=== PATIENT | male | born 1955 | race Caucasian/White ===

== ENCOUNTER 2017-07-13 18:07 | Inpatient (IN) | payer MEDICARE ==
[~2017-07-13] VITALS: Ht 165.1 cm; Wt 50.1 kg
[~2017-07-13 18:07] MED LIST: ALBU.083IS INH; ALBU90OI INH; AZIT250 PO; BUDE6HFA INH; LEVFLO500 PO; LORA.5; Nasal & Sinus D30 MG PO; Norco 5-325 Ta1 EACH PO; PRED10 PO; PRED20 PO; Zovirax800 MG PO
[2017-07-13] MEDS ORDERED: TIOT18 INH (18:19)
[2017-07-13] MEDS ORDERED: FINA5 PO (18:20)
[2017-07-13] MEDS ORDERED: TRAZ50 PO (18:20)
[2017-07-13] MEDS ORDERED: BUPR75 PO (18:21)
[2017-07-13] MEDS ORDERED: BENZ100A PO (18:22)
[2017-07-13] MEDS ORDERED: ATOR20 PO (18:22)
[2017-07-13] MEDS ORDERED: GABA300 PO (18:22)
[2017-07-13] MEDS ORDERED: TAMS.4ER PO (18:22)
[2017-07-13 18:31] LABS: BASOPHILS ABSOLUTE AUTO 0.02 K/mm3 (0.00-0.23); BASOPHILS PERCENT AUTO 0 % (0-2); EOSINOPHILS PERCENT AUTO 0 % (0-6); Hematocrit 39.8 % (37.0-53.0); Hemoglobin 13.1 g/dL (13.5-17.5); IMMATURE GRAN ABSOLUTE AUTO 0.13 K/mm3 (0.00-0.10); IMMATURE GRAN PERCENT AUTO 1 % (0-1); LYMPHOCYTES ABSOLUTE AUTO 0.35 K/mm3 (0.84-5.20); LYMPHOCYTES PERCENT AUTO 3 % (21-46); MONOCYTES ABSOLUTE AUTO 0.25 K/mm3 (0.16-1.47); MONOCYTES PERCENT AUTO 2 % (4-13); Mean Corpuscular HGB 29.6 pg (26.0-34.0); Mean Corpuscular HGB Conc 32.9 g/dL (31.5-36.5); Mean Corpuscular Volume 90 fL (80-100); Mean Platelet Volume 10.6 fL (9.1-12.4); NEUTROPHILS ABSOLUTE AUTO 10.02 K/mm3 (1.96-9.15); NEUTROPHILS PERCENT AUTO 93 % (41-73); Platelet Count 334 K/mm3 (150-400); RDW Coefficient Variation 12.8 % (11.7-14.2); RDW Standard Deviation 42.7 fL (35.1-46.3); Red Blood Cell Count 4.42 M/mm3 (4.30-5.90); White Blood Cell Count 10.77 K/mm3 (4.00-11.30)
[2017-07-13 18:38] LABS: PCO2 Arterial 49.5 mmHg (35-45); PO2 Arterial 46.8 mmHg (80-100)
[2017-07-13 18:48] LABS: Alanine Aminotransfer (ALT/SGP 27 U/L (12-78); Albumin, Blood 3.6 g/dL (3.4-5.0); Albumin/Globulin Ratio 0.9 (0.8-1.8); Alk Phos 70 U/L (50-136); Anion Gap 8 mmol/L (6-16); Aspartate Aminotrans (AST/SGOT 13 U/L (12-37); Bilirubin, Total 0.2 mg/dL (0.1-1.0); Blood Urea Nitrogen 17 mg/dL (8-24); Bun/Creatinine Ratio 21.3 (12.0-20.0); CO2, Blood 29 mmol/L (21-32); Calcium, Blood 9.6 mg/dL (8.5-10.1); Chloride, Blood 102 mmol/L (98-108); Glomerular Filtration Rate >60 (60-); Glucose, Blood 154 mg/dL (70-99); Sodium, Blood 139 mmol/L (136-145); Total Protein, Blood 7.6 g/dL (6.4-8.2)
[2017-07-14 05:30] LABS: BASOPHILS ABSOLUTE AUTO 0.01 K/mm3 (0.00-0.23); BASOPHILS PERCENT AUTO 0 % (0-2); EOSINOPHILS PERCENT AUTO 0 % (0-6); Hematocrit 36.8 % (37.0-53.0); IMMATURE GRAN ABSOLUTE AUTO 0.09 K/mm3 (0.00-0.10); IMMATURE GRAN PERCENT AUTO 1 % (0-1); LYMPHOCYTES ABSOLUTE AUTO 0.45 K/mm3 (0.84-5.20); LYMPHOCYTES PERCENT AUTO 4 % (21-46); MONOCYTES ABSOLUTE AUTO 0.15 K/mm3 (0.16-1.47); MONOCYTES PERCENT AUTO 2 % (4-13); Mean Corpuscular HGB 29.6 pg (26.0-34.0); Mean Corpuscular HGB Conc 32.6 g/dL (31.5-36.5); Mean Corpuscular Volume 91 fL (80-100); Mean Platelet Volume 10.9 fL (9.1-12.4); NEUTROPHILS ABSOLUTE AUTO 9.56 K/mm3 (1.96-9.15); NEUTROPHILS PERCENT AUTO 93 % (41-73); Platelet Count 309 K/mm3 (150-400); RDW Coefficient Variation 12.9 % (11.7-14.2); RDW Standard Deviation 42.6 fL (35.1-46.3); Red Blood Cell Count 4.05 M/mm3 (4.30-5.90); White Blood Cell Count 10.26 K/mm3 (4.00-11.30)
[2017-07-14 05:56] LABS: Alanine Aminotransfer (ALT/SGP 23 U/L (12-78); Albumin, Blood 3.3 g/dL (3.4-5.0); Albumin/Globulin Ratio 0.9 (0.8-1.8); Alk Phos 61 U/L (50-136); Anion Gap 6 mmol/L (6-16); Aspartate Aminotrans (AST/SGOT 14 U/L (12-37); Bilirubin, Total 0.2 mg/dL (0.1-1.0); Blood Urea Nitrogen 18 mg/dL (8-24); Bun/Creatinine Ratio 24.5 (12.0-20.0); CO2, Blood 30 mmol/L (21-32); Chloride, Blood 102 mmol/L (98-108); Creatinine, Blood 0.73 mg/dL (0.60-1.20); Globulin, Blood 3.5 g/dL (2.2-4.0); Glomerular Filtration Rate >60 (60-); Glucose, Blood 192 mg/dL (70-99); Sodium, Blood 138 mmol/L (136-145); Total Protein, Blood 6.8 g/dL (6.4-8.2)
[2017-07-15 05:43] LABS: BASOPHILS ABSOLUTE AUTO 0.02 K/mm3 (0.00-0.23); BASOPHILS PERCENT AUTO 0 % (0-2); EOSINOPHILS PERCENT AUTO 0 % (0-6); Hematocrit 35.8 % (37.0-53.0); Hemoglobin 11.7 g/dL (13.5-17.5); IMMATURE GRAN ABSOLUTE AUTO 0.16 K/mm3 (0.00-0.10); IMMATURE GRAN PERCENT AUTO 1 % (0-1); LYMPHOCYTES ABSOLUTE AUTO 0.58 K/mm3 (0.84-5.20); LYMPHOCYTES PERCENT AUTO 4 % (21-46); MONOCYTES ABSOLUTE AUTO 0.63 K/mm3 (0.16-1.47); MONOCYTES PERCENT AUTO 4 % (4-13); Mean Corpuscular HGB 29.8 pg (26.0-34.0); Mean Corpuscular HGB Conc 32.7 g/dL (31.5-36.5); Mean Corpuscular Volume 91 fL (80-100); Mean Platelet Volume 11.8 fL (9.1-12.4); NEUTROPHILS ABSOLUTE AUTO 13.83 K/mm3 (1.96-9.15); NEUTROPHILS PERCENT AUTO 91 % (41-73); Platelet Count 314 K/mm3 (150-400); RDW Coefficient Variation 13.1 % (11.7-14.2); RDW Standard Deviation 43.7 fL (35.1-46.3); Red Blood Cell Count 3.93 M/mm3 (4.30-5.90); White Blood Cell Count 15.22 K/mm3 (4.00-11.30)
[2017-07-15] MEDS ORDERED: GUAI600T33 PO (11:18)
[2017-07-15] MEDS ORDERED: AZIT500 PO (11:18)
== END 2017-07-15 13:16 | disposition home or self-care (01) | DRG 189 ==
LOC: ER 18:07 → MEDS 19:29 → ENPENDDIS 07-15 10:00 → MEDS 07-15 13:16
PROVIDERS: Emergency Medicine; Family Medicine; Internal Medicine
DX: J96.01 Acute respiratory failure with hypoxia (principal); J44.1 Chronic obstructive pulmonary disease with (acute) exacerbation; N40.0 Benign prostatic hyperplasia without lower urinary tract symptoms; F32.9 Major depressive disorder, single episode, unspecified; E78.5 Hyperlipidemia, unspecified
CPT/HCPCS: 36415; 36600; 71045; 71046; 80053; 82803; 85025; 94640; 94644; 94760; 96374; 97161; 97530; 99285; G8978; G8979; J0456; J1650; J2930; J7050

== ENCOUNTER 2018-03-03 01:18 | Observation (INO) | payer MEDICARE ==
[~2018-03-03] VITALS: Ht 165.1 cm; Wt 46.4 kg
[~2018-03-03 01:18] MED LIST changes: +ATOR20 PO; +AZIT500 PO; +BENZ100A PO; +BUPR75 PO; +FINA5 PO; +GABA300 PO; +GUAI600T33 PO; +TAMS.4ER PO; +TIOT18 INH; +TRAZ50 PO
[2018-03-03 01:44] LABS: BASOPHILS ABSOLUTE AUTO 0.14 K/mm3 (0.00-0.23); BASOPHILS PERCENT AUTO 1 % (0-2); EOSINOPHILS ABSOLUTE AUTO 0.38 K/mm3 (0.00-0.68); EOSINOPHILS PERCENT AUTO 4 % (0-6); Hematocrit 43.3 % (37.0-53.0); Hemoglobin 13.6 g/dL (13.5-17.5); IMMATURE GRAN ABSOLUTE AUTO 0.03 K/mm3 (0.00-0.10); IMMATURE GRAN PERCENT AUTO 0 % (0-1); LYMPHOCYTES ABSOLUTE AUTO 1.39 K/mm3 (0.84-5.20); LYMPHOCYTES PERCENT AUTO 13 % (21-46); MONOCYTES ABSOLUTE AUTO 0.89 K/mm3 (0.16-1.47); MONOCYTES PERCENT AUTO 8 % (4-13); Mean Corpuscular HGB Conc 31.4 g/dL (31.5-36.5); Mean Corpuscular Volume 96 fL (80-100); Mean Platelet Volume 10.9 fL (9.1-12.4); NEUTROPHILS ABSOLUTE AUTO 8.04 K/mm3 (1.96-9.15); NEUTROPHILS PERCENT AUTO 74 % (41-73); Platelet Count 249 K/mm3 (150-400); RDW Coefficient Variation 12.8 % (11.7-14.2); RDW Standard Deviation 45.7 fL (35.1-46.3); Red Blood Cell Count 4.53 M/mm3 (4.30-5.90); White Blood Cell Count 10.87 K/mm3 (4.00-11.30)
[2018-03-03 01:48] LABS: PCO2 Arterial 69.2 mmHg (35-45); PO2 Arterial 43.1 mmHg (80-100); pH Blood Arterial 7.28 (7.35-7.45)
[2018-03-03] MEDS ORDERED: ALBU90OI6 INH (01:51)
[2018-03-03] MEDS ORDERED: CODEINE-GUAIFE120 ML (01:53)
[2018-03-03 02:05] LABS: Alanine Aminotransfer (ALT/SGP 22 U/L (12-78); Albumin, Blood 3.9 g/dL (3.4-5.0); Albumin/Globulin Ratio 1.1 (0.8-1.8); Alk Phos 75 U/L (50-136); Anion Gap 7 mmol/L (6-16); Aspartate Aminotrans (AST/SGOT 19 U/L (12-37); Bilirubin, Total 0.2 mg/dL (0.1-1.0); Blood Urea Nitrogen 18 mg/dL (8-24); Bun/Creatinine Ratio 21.7 (12.0-20.0); CO2, Blood 32 mmol/L (21-32); Calcium, Blood 8.5 mg/dL (8.5-10.1); Chloride, Blood 104 mmol/L (98-108); Creatinine, Blood 0.83 mg/dL (0.60-1.20); Globulin, Blood 3.6 g/dL (2.2-4.0); Glomerular Filtration Rate >60 (60-); Glucose, Blood 114 mg/dL (70-99); Potassium, Blood 4.4 mmol/L (3.5-5.5); Sodium, Blood 143 mmol/L (136-145); Total Protein, Blood 7.5 g/dL (6.4-8.2); Troponin I <0.015 ng/mL (0.000-0.040)
[2018-03-03] MEDS ORDERED: MELA3 PO (04:17)
[2018-03-03 05:12] LABS: Influenza A Negative (NEGATIVE); Influenza B Negative (NEGATIVE)
[2018-03-04 05:22] LABS: BASOPHILS ABSOLUTE AUTO 0.02 K/mm3 (0.00-0.23); BASOPHILS PERCENT AUTO 0 % (0-2); EOSINOPHILS PERCENT AUTO 0 % (0-6); Hematocrit 39.6 % (37.0-53.0); Hemoglobin 12.8 g/dL (13.5-17.5); IMMATURE GRAN ABSOLUTE AUTO 0.12 K/mm3 (0.00-0.10); IMMATURE GRAN PERCENT AUTO 1 % (0-1); LYMPHOCYTES ABSOLUTE AUTO 0.56 K/mm3 (0.84-5.20); LYMPHOCYTES PERCENT AUTO 3 % (21-46); MONOCYTES ABSOLUTE AUTO 0.37 K/mm3 (0.16-1.47); MONOCYTES PERCENT AUTO 2 % (4-13); Mean Corpuscular HGB 29.8 pg (26.0-34.0); Mean Corpuscular HGB Conc 32.3 g/dL (31.5-36.5); Mean Platelet Volume 11.5 fL (9.1-12.4); NEUTROPHILS ABSOLUTE AUTO 16.41 K/mm3 (1.96-9.15); NEUTROPHILS PERCENT AUTO 94 % (41-73); Platelet Count 235 K/mm3 (150-400); RDW Coefficient Variation 13.1 % (11.7-14.2); RDW Standard Deviation 44.3 fL (35.1-46.3); White Blood Cell Count 17.48 K/mm3 (4.00-11.30)
[2018-03-04 05:23] LABS: Mean Corpuscular Volume 92 fL (80-100)
[2018-03-04] MEDS ORDERED: Acetaminophen325 M1 PO (16:00)
[2018-03-04] MEDS ORDERED: Zithromax250 MG PO (16:02)
[2018-03-04] MEDS ORDERED: PRED10 PO (16:06)
[2018-03-04] MEDS ORDERED: MIRALAX17 GM PO (16:07)
== END 2018-03-04 17:15 | disposition home or self-care (01) ==
LOC: ER 01:18 → ICUW 01:19 → MEDS 01:19 → ICUW 03:44 → MEDS 03:44 → ER 03:44 → ICUW 03:49 → MEDS 16:00 → ENPENDDIS 03-04 14:33 → MEDS 03-04 17:15
PROVIDERS: Emergency Medicine; Family Medicine; ADMIT Hospitalist
DX: J96.21 Acute and chronic respiratory failure with hypoxia (principal); J96.22 Acute and chronic respiratory failure with hypercapnia; J44.1 Chronic obstructive pulmonary disease with (acute) exacerbation; J45.909 Unspecified asthma, uncomplicated; E78.5 Hyperlipidemia, unspecified; F32.9 Major depressive disorder, single episode, unspecified; N40.0 Benign prostatic hyperplasia without lower urinary tract symptoms; Z87.891 Personal history of nicotine dependence; Z79.899 Other long term (current) drug therapy; Z88.8 Allergy status to other drugs, medicaments and biological substances; Z88.1 Allergy status to other antibiotic agents; Z79.01 Long term (current) use of anticoagulants
CPT/HCPCS: 36415; 36600; 71045; 80053; 82803; 84484; 85025; 87804; 93005; 93010; 94640; 94644; 94760; 96374; 99285-25; G0378; J1650; J2930

== ENCOUNTER 2018-07-12 15:01 | Inpatient (IN) | payer MEDICARE ==
[~2018-07-12] VITALS: Ht 165.1 cm; Wt 48.6 kg
[~2018-07-12 15:01] MED LIST changes: +ALBU90OI6 INH; +Acetaminophen325 M1 PO; +CODEINE-GUAIFE120 ML PO; +MELA3 PO; +MIRALAX17 GM PO; +SPIRIVA RESPIMAT4 G1 PO; -TIOT18 INH; +Zithromax250 MG PO
[2018-07-12 15:16] LABS: Base Excess Venous 7.9 mmol/L; Bicarbonate Venous 29.7 mmol/L (24.0-30.0); PCO2 Venous 63.8 mmHg (38-42); PO2 Venous 134 mmHg (38-42); pH Blood Venous 7.33 (7.34-7.37)
[2018-07-12 15:20] LABS: BASOPHILS ABSOLUTE AUTO 0.11 K/mm3 (0.00-0.23); BASOPHILS PERCENT AUTO 1 % (0-2); EOSINOPHILS ABSOLUTE AUTO 0.67 K/mm3 (0.00-0.68); EOSINOPHILS PERCENT AUTO 6 % (0-6); Hematocrit 40.5 % (37.0-53.0); Hemoglobin 13.1 g/dL (13.5-17.5); IMMATURE GRAN ABSOLUTE AUTO 0.07 K/mm3 (0.00-0.10); IMMATURE GRAN PERCENT AUTO 1 % (0-1); LYMPHOCYTES ABSOLUTE AUTO 2.11 K/mm3 (0.84-5.20); LYMPHOCYTES PERCENT AUTO 18 % (21-46); MONOCYTES ABSOLUTE AUTO 1.37 K/mm3 (0.16-1.47); MONOCYTES PERCENT AUTO 12 % (4-13); Mean Corpuscular HGB 30.4 pg (26.0-34.0); Mean Corpuscular HGB Conc 32.3 g/dL (31.5-36.5); Mean Corpuscular Volume 94 fL (80-100); Mean Platelet Volume 11.4 fL (9.1-12.4); NEUTROPHILS ABSOLUTE AUTO 7.31 K/mm3 (1.96-9.15); NEUTROPHILS PERCENT AUTO 63 % (41-73); Platelet Count 228 K/mm3 (150-400); RDW Coefficient Variation 12.6 % (11.7-14.2); RDW Standard Deviation 43.5 fL (35.1-46.3); Red Blood Cell Count 4.31 M/mm3 (4.30-5.90); White Blood Cell Count 11.64 K/mm3 (4.00-11.30)
[2018-07-12 15:44] LABS: Alanine Aminotransfer (ALT/SGP 25 U/L (12-78); Albumin, Blood 3.7 g/dL (3.4-5.0); Albumin/Globulin Ratio 1.1 (0.8-1.8); Alk Phos 76 U/L (50-136); Anion Gap 2 mmol/L (6-16); Aspartate Aminotrans (AST/SGOT 13 U/L (12-37); Bilirubin, Total 0.3 mg/dL (0.1-1.0); Blood Urea Nitrogen 14 mg/dL (8-24); Bun/Creatinine Ratio 15.8 (12.0-20.0); CO2, Blood 35 mmol/L (21-32); Calcium, Blood 8.9 mg/dL (8.5-10.1); Chloride, Blood 102 mmol/L (98-108); Creatinine, Blood 0.89 mg/dL (0.60-1.20); Globulin, Blood 3.4 g/dL (2.2-4.0); Glomerular Filtration Rate >60 (60-); Glucose, Blood 144 mg/dL (70-99); Potassium, Blood 4.3 mmol/L (3.5-5.5); Sodium, Blood 139 mmol/L (136-145); Total Protein, Blood 7.1 g/dL (6.4-8.2); Troponin I <0.015 ng/mL (0.000-0.040)
[2018-07-12] MEDS ORDERED: THERA1 EACH PO (16:27)
--- NOTE | 2018-07-12 19:30 | NUR ---
ASSUMED CARE PT ARRIVED TO [facility] @ APPROXIMATELY 1850 THIS EVENING. PT IS AOX4 AND AMBULATORY WITH STANDBY ASSIST AROUND ROOM. PT IS RESTING IN BED AT THIS TIME WITH RESPIRATIONS EVEN AND UNLABORED, BUT TACHYPNEIC. PT CURRENTLY DENIES DYSPNEA, O2 SATS >90% ON 2L VIA NASAL CANNULA, WHICH IS HOME O2 USAGE. LUNG SOUNDS ARE CLEAR IN THE UPPER LOBES AND DIMINISHED IN THE BASES. PT ORIENTED TO ROOM AND CALL LIGHT SYSTEM, ENCOURAGED TO CALL FOR ASSISTANCE. WILL CONTINUE WITH ADMISSION AND MONITORING. BED IN LOW POSITION, CALL LIGHT IN REACH.
[2018-07-12] MEDS ORDERED: DIPH50 PO (20:59)
[2018-07-12] MEDS ORDERED: PRED10 PO (21:02)
--- NOTE | 2018-07-12 21:20 | NUR ---
PROVIDER CONTACTED PT REPORTS THAT HE USES BENADRYL AT HOME FOR EPISODES OF ANXIETY AND DYSPNEA. PT REQUESTING BENADRYL AND HOME SLEEP MEDICATION. DR DIGGS CONTACTED AND ORDERS RECEIVED FOR BENADRYL AND MELATONIN. WILL INPUT AND ADMINISTER PER ORDERS.
--- NOTE | 2018-07-13 06:26 | NUR ---
SHIFT SUMMARY PT HAS REMAINED AOX4 THROUGHOUT SHIFT. VSS. PLEASANT AND COOPERATIVE WITH CARE. O2 SATS HAVE REMAINED >90% ON 2L VIA NASAL CANNULA. PT CONTINUES TO AMBULATE INDEPENDENTLY IN THE ROOM. PT WITH ONE REPORT OF FEELING "CONGESTED" THIS AM, BUT HAS NOT REPORTED FEELING DYSPNEIC. HAS RESTED WELL THROUHGOUT THE NIGHT. NO OTHER CHANGES FROM INITIAL ASSESSMENT. WILL CONTINUE TO MONITOR AND REPORT TO ONCOMING SHIFT RN. BED IN LOW POSITION, CALL LIGHT IN REACH.
--- NOTE | 2018-07-13 07:47 | NUR ---
The pt states that he is feeling very well this morning. States several times that he hopes to go home today, as he is feeling better now than on other occasions when he was discharged from the hospital. Wearing oxgyen at 2 l/min, which is what he uses at home. Did not need any bipap all night long.
[2018-07-13] MEDS ORDERED: PRED10 PO (16:37)
[2018-07-13] MEDS ORDERED: ACET325 PO (16:38)
[2018-07-13] MEDS ORDERED: ONDA4ODT SL (16:40)
[2018-07-13] MEDS ORDERED: Florastor250 MG PO (16:41)
[2018-07-13] MEDS ORDERED: AZIT500 PO (16:43)
--- NOTE | 2018-07-13 17:02 | NUR ---
Pt discharge instructions were reviewed with him. He is eager to go home. Ambulatory to the bathroom independently without difficulty. Able to carry on conversations, eat, and states that he is doing very well. Reviewed new medications as well as follow up appointment with Dr. Cole tomorrow. The pt will call his PCP Eleni tomorrow to make a follow up appointment as instructed, within a week.
--- NOTE | 2018-07-13 17:54 | NUR ---
The pt was taken out in a wheelchair to a private vehicle driven by his daughter. He was assisted by RN to the car.
== END 2018-07-13 17:48 | disposition home or self-care (01) | DRG 189 ==
LOC: ER 15:01 → PCU 16:49
PROVIDERS: Emergency Medicine; ADMIT Internal Medicine
PROC: 5A09357 Assistance with Respiratory Ventilation, Less than 24 Consecutive Hours, Continuous Positive Airway Pressure (ICD-10-PCS; principal; 2018-07-12)
DX: J96.21 Acute and chronic respiratory failure with hypoxia (principal); J44.1 Chronic obstructive pulmonary disease with (acute) exacerbation; J96.22 Acute and chronic respiratory failure with hypercapnia; Z99.81 Dependence on supplemental oxygen; E78.5 Hyperlipidemia, unspecified; N40.0 Benign prostatic hyperplasia without lower urinary tract symptoms; F32.9 Major depressive disorder, single episode, unspecified; Z87.891 Personal history of nicotine dependence; R00.0 Tachycardia, unspecified
CPT/HCPCS: 71045; 80053; 82803; 82947; 83880; 84484; 85025; 93005; 93010; 94640; 94660; 94760; 96365; 96366; 96375; 99285-25; J0456; J1650; J2405; J2930; J3475; J7030; J7050; Q0163

== ENCOUNTER 2018-09-27 07:46 | Day surgery (SDC) | payer MEDICARE ==
[~2018-09-27 07:46] MED LIST changes: +ACET325 PO; +DIPH50 PO; +Florastor250 MG PO; +ONDA4ODT SL; +THERA1 EACH PO
--- NOTE | 2018-09-27 08:14 | NUR ---
INTO [facility] WHEELCHA[facility]. HISTORY AND ALLERGIES REVIEWED. PT O2 DEPENDENT-SATS 92% ON 2 LITERS NASAL CANULA. NPO STATUS CONFIRMED. HR 80-90'S.WILL ADMINISTER METOPROLOL PER MD ORDERS.SEE EMAR.
--- NOTE | 2018-09-27 08:35 | NUR ---
METOPROLOL 5 MG IVP X1 GIVEN HR 80-90'S SR.
--- NOTE | 2018-09-27 09:29 | NUR ---
Patient up to Ambulate independently. Gait steady. Discharge instructions reviewed with patient. Patient verbalizes understanding. Copy given to patient to take home.
== END 2018-09-27 22:53 | disposition home or self-care (01) ==
LOC: CT 07:46 → ORD 07:46 → CT 09:00 → ORD 22:53
DX: I25.10 Atherosclerotic heart disease of native coronary artery without angina pectoris (principal); I42.9 Cardiomyopathy, unspecified; J44.9 Chronic obstructive pulmonary disease, unspecified; E78.5 Hyperlipidemia, unspecified; Z87.891 Personal history of nicotine dependence; Z88.8 Allergy status to other drugs, medicaments and biological substances
CPT/HCPCS: 75574; Q9967

== ENCOUNTER 2019-10-24 15:28 | Emergency (ER) | payer MEDICARE ==
[~2019-10-24] VITALS: Ht 165.1 cm; Wt 49.9 kg
[2019-10-24 16:05] LABS: Source, Urine Clean Catch
[2019-10-24 16:08] LABS: BASOPHILS ABSOLUTE AUTO 0.09 K/mm3 (0.00-0.23); BASOPHILS PERCENT AUTO 1 % (0-2); EOSINOPHILS PERCENT AUTO 6 % (0-6); Hematocrit 39.9 % (37.0-53.0); Hemoglobin 12.4 g/dL (13.5-17.5); IMMATURE GRAN ABSOLUTE AUTO 0.04 K/mm3 (0.00-0.10); IMMATURE GRAN PERCENT AUTO 0 % (0-1); LYMPHOCYTES ABSOLUTE AUTO 0.99 K/mm3 (0.84-5.20); LYMPHOCYTES PERCENT AUTO 9 % (21-46); MONOCYTES ABSOLUTE AUTO 1.16 K/mm3 (0.16-1.47); MONOCYTES PERCENT AUTO 10 % (4-13); Mean Corpuscular HGB 28.8 pg (26.0-34.0); Mean Corpuscular HGB Conc 31.1 g/dL (31.5-36.5); Mean Corpuscular Volume 93 fL (80-100); NEUTROPHILS ABSOLUTE AUTO 8.42 K/mm3 (1.96-9.15); NEUTROPHILS PERCENT AUTO 74 % (41-73); Platelet Count 242 K/mm3 (150-400); RDW Coefficient Variation 12.7 % (11.7-14.2); RDW Standard Deviation 43.5 fL (35.1-46.3)
[2019-10-24 16:09] LABS: Appearance, Urine Clear (Clear); Blood, Urine 3+ (Neg); Color, Urine Red (P-Yellow); Glucose Qualitative, Urine Neg (Neg); Ketones, Urine Neg (Neg); Leukocyte Esterase, Urine Neg (Neg); Nitrite, Urine Pos (Neg); Protein, Urine 3+ (Neg); Urobilinogen, Urine 3+ (Normal)
[2019-10-24 16:18] LABS: Bilirubin, Urine 3+ (Neg)
[2019-10-24 16:23] LABS: Squamous Epithelial Cells Rare /hpf (Few)
[2019-10-24 16:24] LABS: Bacteria Few /hpf
[2019-10-24 16:34] LABS: Alanine Aminotransfer (ALT/SGP 22 U/L (12-78); Albumin, Blood 3.2 g/dL (3.4-5.0); Albumin/Globulin Ratio 0.8 (0.8-1.8); Alk Phos 69 U/L (50-136); Anion Gap 3 mmol/L (6-16); Aspartate Aminotrans (AST/SGOT 32 U/L (12-37); Bilirubin, Total 0.5 mg/dL (0.1-1.0); Blood Urea Nitrogen 11 mg/dL (8-24); CO2, Blood 34 mmol/L (21-32); Calcium, Blood 9.7 mg/dL (8.5-10.1); Chloride, Blood 101 mmol/L (98-108); Glomerular Filtration Rate >60 (60-); Glucose, Blood 121 mg/dL (70-99); Potassium, Blood 4.3 mmol/L (3.5-5.5); Sodium, Blood 138 mmol/L (136-145); Total Protein, Blood 7.2 g/dL (6.4-8.2)
[2019-10-24] MEDS ORDERED: Percocet 5-3251 EACH PO (17:43)
[2019-10-24] MEDS ORDERED: Cipro500 MG PO (17:43)
== END 2019-10-24 18:04 | disposition home or self-care (01) ==
LOC: ER 15:28
PROVIDERS: Physician Assistant
DX: N13.6 Pyonephrosis (principal); J44.9 Chronic obstructive pulmonary disease, unspecified; N40.0 Benign prostatic hyperplasia without lower urinary tract symptoms; E78.5 Hyperlipidemia, unspecified; F32.9 Major depressive disorder, single episode, unspecified; Z87.891 Personal history of nicotine dependence; Z88.8 Allergy status to other drugs, medicaments and biological substances; Z79.52 Long term (current) use of systemic steroids; Z79.899 Other long term (current) drug therapy; Z99.81 Dependence on supplemental oxygen
CPT/HCPCS: 36415; 51798; 74176; 80053; 81001; 83690; 85025; 87086; 96361; 96365; 96375; 99284-25; J0696; J1885; J2405; J7030

== ENCOUNTER 2020-08-02 14:21 | Emergency (ER) | payer MEDICARE ==
[~2020-08-02] VITALS: Ht 165.1 cm; Wt 52.2 kg
[~2020-08-02 14:21] MED LIST changes: +Cipro500 MG PO; +Percocet 5-3251 EACH PO
[2020-08-02 14:55] LABS: BASOPHILS PERCENT AUTO 1 % (0-2); EOSINOPHILS ABSOLUTE AUTO 0.51 K/mm3 (0.00-0.68); EOSINOPHILS PERCENT AUTO 4 % (0-6); Hematocrit 41.6 % (37.0-53.0); Hemoglobin 13.3 g/dL (13.5-17.5); IMMATURE GRAN ABSOLUTE AUTO 0.16 K/mm3 (0.00-0.10); IMMATURE GRAN PERCENT AUTO 1 % (0-1); LYMPHOCYTES ABSOLUTE AUTO 1.14 K/mm3 (0.84-5.20); LYMPHOCYTES PERCENT AUTO 9 % (21-46); MONOCYTES ABSOLUTE AUTO 1.04 K/mm3 (0.16-1.47); MONOCYTES PERCENT AUTO 8 % (4-13); Mean Corpuscular HGB 29.4 pg (26.0-34.0); Mean Corpuscular Volume 92 fL (80-100); Mean Platelet Volume 10.6 fL (9.1-12.4); NEUTROPHILS ABSOLUTE AUTO 10.17 K/mm3 (1.96-9.15); NEUTROPHILS PERCENT AUTO 78 % (41-73); Platelet Count 233 K/mm3 (150-400); RDW Coefficient Variation 12.2 % (11.7-14.2); RDW Standard Deviation 41.2 fL (35.1-46.3); Red Blood Cell Count 4.53 M/mm3 (4.30-5.90); White Blood Cell Count 13.12 K/mm3 (4.00-11.30)
[2020-08-02 15:08] LABS: Alanine Aminotransfer (ALT/SGP 29 U/L (12-78); Albumin, Blood 3.3 g/dL (3.4-5.0); Albumin/Globulin Ratio 0.9 (0.8-1.8); Alk Phos 72 U/L (50-136); Anion Gap 5 mmol/L (6-16); Aspartate Aminotrans (AST/SGOT 18 U/L (12-37); Bilirubin, Total 0.4 mg/dL (0.1-1.0); Blood Urea Nitrogen 27 mg/dL (8-24); Bun/Creatinine Ratio 22.3 (12.0-20.0); CO2, Blood 34 mmol/L (21-32); Calcium, Blood 9.2 mg/dL (8.5-10.1); Chloride, Blood 97 mmol/L (98-108); Creatinine, Blood 1.21 mg/dL (0.60-1.20); Globulin, Blood 3.8 g/dL (2.2-4.0); Glomerular Filtration Rate >60 (60-); Glucose, Blood 137 mg/dL (70-99); Sodium, Blood 136 mmol/L (136-145); Total Protein, Blood 7.1 g/dL (6.4-8.2)
[2020-08-02 16:58] LABS: Source, Urine Clean Catch
[2020-08-02] MEDS ORDERED: SPIRIVA RESPIMAT4 G3 IH (17:31)
[2020-08-02] MEDS ORDERED: TRAZ100 PO (17:36)
[2020-08-02 17:38] LABS: Appearance, Urine Clear (Clear); Blood, Urine 2+ (Neg); Glucose Qualitative, Urine Neg (Neg); Ketones, Urine Neg (Neg); Leukocyte Esterase, Urine Neg (Neg); Nitrite, Urine Pos (Neg); Protein, Urine 2+ (Neg); Specific Gravity, Urine 1.025 (1.003-1.022); Urobilinogen, Urine 3+ (Normal)
[2020-08-02] MEDS ORDERED: BUPROPION XL150 M1 PO (17:38)
[2020-08-02] MEDS ORDERED: FINA5 PO (17:38)
[2020-08-02 17:59] LABS: Bilirubin, Urine 3+ (Neg); Color, Urine Orange (P-Yellow)
[2020-08-02 18:01] LABS: Squamous Epithelial Cells Few /hpf (Few)
[2020-08-02 18:02] LABS: Bacteria Many /hpf; Calcium Oxalate Crystals Mod /hpf; Hyaline Casts 0-2 /lpf (0-2); Mucus Light (0-Heavy)
[2020-08-02] MEDS ORDERED: CEPH500 PO ×2 (20:25→20:37)
== END 2020-08-02 20:46 | disposition home or self-care (01) ==
LOC: ER 14:21
PROVIDERS: Physician Assistant
DX: N40.1 Benign prostatic hyperplasia with lower urinary tract symptoms (principal); R33.8 Other retention of urine; N39.0 Urinary tract infection, site not specified; Z79.51 Long term (current) use of inhaled steroids; Z79.899 Other long term (current) drug therapy
CPT/HCPCS: 80053; 81001; 85025; 87086; 96365; 99284-25; J0696

== ENCOUNTER 2020-10-26 18:29 | Emergency (ER) | payer MEDICARE ==
[~2020-10-26] VITALS: Ht 165.1 cm; Wt 52.2 kg
[~2020-10-26 18:29] MED LIST changes: +BUPROPION XL150 M1 PO; +CEPH500 PO; +SPIRIVA RESPIMAT4 G3 IH; +TRAZ100 PO
== END 2020-10-26 21:30 | disposition home or self-care (01) ==
LOC: ER 18:29
DX: U07.1 COVID-19 (principal); J44.9 Chronic obstructive pulmonary disease, unspecified; E78.5 Hyperlipidemia, unspecified; N40.0 Benign prostatic hyperplasia without lower urinary tract symptoms; Z23 Encounter for immunization; Z88.8 Allergy status to other drugs, medicaments and biological substances; Z79.899 Other long term (current) drug therapy; Z99.81 Dependence on supplemental oxygen; Z87.891 Personal history of nicotine dependence
CPT/HCPCS: 99284-25; M0243; Q0243

== ENCOUNTER 2021-02-12 15:35 | Emergency (ER) | payer MEDICARE ==
[~2021-02-12] VITALS: Ht 165.1 cm; Wt 49.9 kg
[2021-02-12 16:25] LABS: BASOPHILS ABSOLUTE AUTO 0.02 K/mm3 (0.00-0.23); BASOPHILS PERCENT AUTO 0 % (0-2); EOSINOPHILS PERCENT AUTO 0 % (0-6); Hematocrit 43.2 % (37.0-53.0); Hemoglobin 13.3 g/dL (13.5-17.5); IMMATURE GRAN ABSOLUTE AUTO 0.03 K/mm3 (0.00-0.10); IMMATURE GRAN PERCENT AUTO 0 % (0-1); LYMPHOCYTES ABSOLUTE AUTO 0.21 K/mm3 (0.84-5.20); LYMPHOCYTES PERCENT AUTO 2 % (21-46); MONOCYTES ABSOLUTE AUTO 0.24 K/mm3 (0.16-1.47); MONOCYTES PERCENT AUTO 2 % (4-13); Mean Corpuscular HGB 29.8 pg (26.0-34.0); Mean Corpuscular HGB Conc 30.8 g/dL (31.5-36.5); Mean Corpuscular Volume 97 fL (80-100); Mean Platelet Volume 11.9 fL (9.1-12.4); NEUTROPHILS ABSOLUTE AUTO 10.56 K/mm3 (1.96-9.15); NEUTROPHILS PERCENT AUTO 95 % (41-73); Platelet Count 191 K/mm3 (150-400); RDW Coefficient Variation 11.9 % (11.7-14.2); RDW Standard Deviation 42.6 fL (35.1-46.3); Red Blood Cell Count 4.46 M/mm3 (4.30-5.90); White Blood Cell Count 11.06 K/mm3 (4.00-11.30)
[2021-02-12 17:01] LABS: Alanine Aminotransfer (ALT/SGP 32 U/L (12-78); Albumin, Blood 3.5 g/dL (3.4-5.0); Albumin/Globulin Ratio 1.1 (0.8-1.8); Alk Phos 74 U/L (50-136); Anion Gap 1 mmol/L (6-16); Aspartate Aminotrans (AST/SGOT 30 U/L (12-37); Bilirubin, Total 0.3 mg/dL (0.1-1.0); Blood Urea Nitrogen 24 mg/dL (8-24); Bun/Creatinine Ratio 31.3 (12.0-20.0); CO2, Blood 43 mmol/L (21-32); Calcium, Blood 9.6 mg/dL (8.5-10.1); Chloride, Blood 93 mmol/L (98-108); Creatinine, Blood 0.77 mg/dL (0.60-1.20); Globulin, Blood 3.2 g/dL (2.2-4.0); Glomerular Filtration Rate >60 (60-); Glucose, Blood 168 mg/dL (70-99); Potassium, Blood 4.8 mmol/L (3.5-5.5); Sodium, Blood 137 mmol/L (136-145); Total Protein, Blood 6.7 g/dL (6.4-8.2); Troponin I <0.015 ng/mL (0.000-0.040)
[2021-02-12 18:30] LABS: Influenza A, PCR NEGATIVE (NEGATIVE); Influenza B, PCR NEGATIVE (NEGATIVE); SARS-Cov-2 (COVID-19) PCR, MMC NEGATIVE (NEGATIVE)
[2021-02-12 18:44] LABS: Resp Syncytial Virus, PCR POSITIVE (NEGATIVE)
== END 2021-02-12 19:41 | disposition home or self-care (01) ==
LOC: ER 15:35
PROVIDERS: Physician Assistant
DX: J44.1 Chronic obstructive pulmonary disease with (acute) exacerbation (principal); J21.0 Acute bronchiolitis due to respiratory syncytial virus; J44.0 Chronic obstructive pulmonary disease with (acute) lower respiratory infection; J44.9 Chronic obstructive pulmonary disease, unspecified; Z20.822 Contact with and (suspected) exposure to COVID-19; E78.5 Hyperlipidemia, unspecified; Z87.891 Personal history of nicotine dependence; Z88.8 Allergy status to other drugs, medicaments and biological substances; Z79.899 Other long term (current) drug therapy
CPT/HCPCS: 0241U; 36415; 71045; 80053; 84484; 85025; 93005; 93010; 99285-25

== ENCOUNTER 2021-02-13 08:49 | Emergency (ER) | payer MEDICARE ==
[~2021-02-13] VITALS: Ht 167.6 cm; Wt 59.0 kg
[2021-02-13 09:15] LABS: BASOPHILS ABSOLUTE AUTO 0.04 K/mm3 (0.00-0.23); BASOPHILS PERCENT AUTO 0 % (0-2); EOSINOPHILS ABSOLUTE AUTO 0.01 K/mm3 (0.00-0.68); EOSINOPHILS PERCENT AUTO 0 % (0-6); Hematocrit 42.1 % (37.0-53.0); Hemoglobin 12.7 g/dL (13.5-17.5); IMMATURE GRAN ABSOLUTE AUTO 0.07 K/mm3 (0.00-0.10); IMMATURE GRAN PERCENT AUTO 1 % (0-1); LYMPHOCYTES ABSOLUTE AUTO 1.22 K/mm3 (0.84-5.20); LYMPHOCYTES PERCENT AUTO 8 % (21-46); MONOCYTES ABSOLUTE AUTO 1.81 K/mm3 (0.16-1.47); MONOCYTES PERCENT AUTO 12 % (4-13); Mean Corpuscular HGB 29.7 pg (26.0-34.0); Mean Corpuscular HGB Conc 30.2 g/dL (31.5-36.5); Mean Corpuscular Volume 98 fL (80-100); NEUTROPHILS ABSOLUTE AUTO 11.81 K/mm3 (1.96-9.15); NEUTROPHILS PERCENT AUTO 79 % (41-73); Platelet Count 224 K/mm3 (150-400); RDW Coefficient Variation 11.7 % (11.7-14.2); RDW Standard Deviation 42.4 fL (35.1-46.3); Red Blood Cell Count 4.28 M/mm3 (4.30-5.90); White Blood Cell Count 14.96 K/mm3 (4.00-11.30)
[2021-02-13 09:21] LABS: PCO2 Arterial 102 mmHg (35-45); PO2 Arterial 23.9 mmHg (80-100); pH Blood Arterial 7.21 (7.35-7.45)
[2021-02-13 09:34] LABS: Alanine Aminotransfer (ALT/SGP 38 U/L (12-78); Albumin, Blood 3.4 g/dL (3.4-5.0); Albumin/Globulin Ratio 0.9 (0.8-1.8); Alk Phos 71 U/L (50-136); Aspartate Aminotrans (AST/SGOT 34 U/L (12-37); Bilirubin, Total 0.3 mg/dL (0.1-1.0); Blood Urea Nitrogen 27 mg/dL (8-24); Bun/Creatinine Ratio 35.9 (12.0-20.0); Calcium, Blood 9.5 mg/dL (8.5-10.1); Chloride, Blood 90 mmol/L (98-108); Creatinine, Blood 0.75 mg/dL (0.60-1.20); Globulin, Blood 3.7 g/dL (2.2-4.0); Glomerular Filtration Rate >60 (60-); Glucose, Blood 251 mg/dL (70-99); Magnesium, Blood 2.4 mg/dL (1.6-2.4); Potassium, Blood 4.5 mmol/L (3.5-5.5); Sodium, Blood 137 mmol/L (136-145); Total Protein, Blood 7.1 g/dL (6.4-8.2); Troponin I <0.015 ng/mL (0.000-0.040)
[2021-02-13 09:48] LABS: Anion Gap Unable to Calculate mmol/L (6-16)
[2021-02-13 09:50] LABS: Calcium, Ionized (POC) 0.97 mmol/L (1.10-1.46); Chloride (POC) 83 mmol/L (98-108); Creatinine (POC) 0.9 mg/dL (0.8-1.3); Glucose (ISTAT POC) 594 mg/dL (70-99); Hemoglobin (POC) 10.2 g/dL (13.5-17.5); Potassium (POC) 3.7 mmol/L (3.5-5.5); Sodium (POC) 136 mmol/L (135-148); Total CO2 (POC) 44 mmol/L (21-32)
[2021-02-13 09:50] LABS: CO2, Blood >45 mmol/L (21-32)
[2021-02-13 09:52] LABS: Source, Urine Catheter
[2021-02-13 09:58] LABS: Appearance, Urine Clear (Clear); Bilirubin, Urine Neg (Neg); Blood, Urine 4+ (Neg); Color, Urine Yellow (P-Yellow); Glucose Qualitative, Urine 3+ (Neg); Ketones, Urine 1+ (Neg); Leukocyte Esterase, Urine Neg (Neg); Nitrite, Urine Neg (Neg); Protein, Urine 3+ (Neg); Urobilinogen, Urine NORM (Normal); pH, Urine 6.5 (5.0-8.0)
[2021-02-13 09:58] LABS: PO2 Arterial 258 mmHg (80-100)
[2021-02-13 10:00] LABS: pH Blood Arterial 7.11 (7.35-7.45)
[2021-02-13 10:01] LABS: PCO2 Arterial > 105 mmHg (35-45)
[2021-02-13 10:07] LABS: Influenza A, PCR NEGATIVE (NEGATIVE); Influenza B, PCR NEGATIVE (NEGATIVE); SARS-Cov-2 (COVID-19) PCR, MMC NEGATIVE (NEGATIVE)
[2021-02-13 10:08] LABS: Resp Syncytial Virus, PCR POSITIVE (NEGATIVE)
[2021-02-13 10:34] LABS: U Amphetamine Screen Not Detected; U Barbituate Screen Not Detected; U Benzodiazapine Screen Not Detected; U Buprenorphine Screen Not Detected; U Cannabinoids Screen Not Detected; U Cocaine Screen Not Detected; U Methadone Screen Not Detected; U Methamphetamine Screen Not Detected; U Opiates Screen Not Detected; U Oxycodone Screen Not Detected; U Phencyclidine Screen Not Detected; U Propoxyphene Screen Not Detected
[2021-02-13 10:42] LABS: WBC Cast 0-2 /lpf (0)
[2021-02-13 10:43] LABS: White Blood Cells, Urine 0-2 /hpf (0-5)
[2021-02-13 10:46] LABS: Bacteria Mod /hpf; Squamous Epithelial Cells Rare /hpf (Few)
[2021-02-13 10:47] LABS: Amorphous Mod (0-Heavy); Mucus Light (0-Heavy)
[2021-02-13 10:49] LABS: Renal Epithelial Rare /hpf (0-Rare)
== END 2021-02-13 10:23 ==
LOC: ER 08:49
PROVIDERS: Student in an Organized Health Care Education/Training Program
DX: I46.9 Cardiac arrest, cause unspecified (principal); J93.9 Pneumothorax, unspecified; I48.91 Unspecified atrial fibrillation; J44.9 Chronic obstructive pulmonary disease, unspecified; N40.0 Benign prostatic hyperplasia without lower urinary tract symptoms; E78.5 Hyperlipidemia, unspecified; Z88.8 Allergy status to other drugs, medicaments and biological substances; Z79.899 Other long term (current) drug therapy; Z79.891 Long term (current) use of opiate analgesic; Z87.891 Personal history of nicotine dependence; Z87.442 Personal history of urinary calculi; Z20.822 Contact with and (suspected) exposure to COVID-19
CPT/HCPCS: 0241U; 31500; 31720; 32551; 36415; 36600; 51702; 71045; 80047; 80053; 81001; 82803; 82947; 83735; 84484; 85014; 85025; 87086; 92950; 93005; 93010; 94002; 94640; 94644; 94645; 96374; 99285-25; J0456; J1160; J2370; J3475; J7040; J7050